=== PATIENT | male | born 1995 | race American Indian/Alaskan Native ===

== ENCOUNTER 2020-11-30 08:50 | Emergency (ER) | payer OTHER ==
--- NOTE | 2020-11-30 10:43 | Emergency Department Report ---
Blank Doc - Documentation Documentation: 25-year-old male that presents with RLQ pain, nausea and chest pains. Denies any vomiting and SOB. Exam: tenderness to RLQ. 1- This is a initial triage assessment/medical screening only. Full assessment and work-up will be completed once the patient is in proper hospital gown, ED bed and in a private room setting. This initial assessment/diagnostic orders/clinical plan/ treatment(s) is/are subject to change based on pt's health status, clinical progression and re-assessment by fellow clinical providers in the ED. Further treatment and workup at subsequent clinical providers discretion. Patient/guardians urged not to elope from ED as their condition may be serious if not clinically assessed and managed. 2-labs 3-EKG 4-xrays
--- NOTE | 2020-11-30 11:22 | XRay Report ---
ABDOMINAL SERIES WITH CHEST X-RAY ONE VIEW HISTORY: Chest and abdominal pain for 3 days COMPARISON: None. IMPRESSION: Normal heart and mediastinal structures. The lungs are clear. Supine and upright views of the abdomen demonstrate a normal bowel gas pattern. No evidence for mass, constipation or pathologic calcifications. No bowel obstruction. Mild scoliosis is noted in the thoracolumbar spine. Signer Name: Rodrigo Fernandez Jr, MD Signed: 11/30/2020 11:17 AM Workstation Name: [id number]
[2020-11-30 11:51] LABS: Basophils # (Auto) 0.1 K/mm3 (0.0-0.1); Basophils % (Auto) 0.8 % (0.0-1.8); Eosinophils # (Auto) 0.1 K/mm3 (0.0-0.4); Hematocrit 43.2 % (35.5-45.6); Hemoglobin 14.4 gm/dl (11.8-15.2); Lymphocytes # (Auto) 1.8 K/mm3 (1.2-5.4); Lymphocytes % (Auto) 27.2 % (13.4-35.0); Mean Corpuscular HGB Conc 33 % (32-34); Mean Corpuscular Volume 89 fl (84-94); Monocytes # (Auto) 0.5 K/mm3 (0.0-0.8); Monocytes % (Auto) 8.2 % (0.0-7.3); Platelet Count 312 K/mm3 (140-440); Red Blood Count 4.83 M/mm3 (3.65-5.03); Red Cell Distribution Width 14.5 % (13.2-15.2)
[2020-11-30 12:03] VITALS: BP 135/100
[2020-11-30 12:16] LABS: Alanine Aminotransferase 22 units/L (7-56); Albumin 4.5 g/dL (3.9-5); Blood Urea Nitrogen 7 mg/dL (9-20); Calcium 9.9 mg/dL (8.4-10.2); Hemolysis Index 7
[2020-11-30 12:17] LABS: BUN/Creatinine Ratio 10
[2020-11-30 12:22] LABS: INR 0.91 (0.87-1.13)
[2020-11-30 12:23] LABS: Partial Thromboplastin Time 25.6 Sec. (24.2-36.6)
[2020-11-30 19:19] LABS: Bilirubin,Urine NEG (Negative); Blood,Urine NEG (Negative); Color,Urine Yellow (Yellow); Mucus,Urine FEW /HPF; Protein,Urine <15 mg/dL mg/dL (Negative); Urobilinogen,Urine < 2.0 mg/dL (<2.0)
--- NOTE | 2020-12-03 09:04 | Electrocardiograph Report ---
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
--- NOTE | 2020-12-03 09:04 | Electrocardiograph Report ---
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
== END 2020-11-30 18:00 | disposition left against medical advice (07) ==
LOC: ED 08:50
DX: R10.9 Unspecified abdominal pain (principal); Z53.21 Procedure and treatment not carried out due to patient leaving prior to being seen by health care provider
CPT/HCPCS: 36415; 74022; 80053; 81001; 83690; 84484; 85025; 85610; 85730; 93005

== ENCOUNTER 2021-06-13 13:51 | Emergency (ER) | payer OTHER ==
[2021-06-13] MEDS ORDERED: IBUPROFEN 800 MG TAB PO ONE (16:02)
[2021-06-13] MEDS ORDERED: ONDANSETRON 4 MG ODT TAB PO ONE (16:02)
--- NOTE | 2021-06-13 16:19 | Emergency Department Report ---
ED Chest Pain HPI - General Chief Complaint: Weakness Stated Complaint: CHEST PAIN Time Seen by Provider: 06/13/21 15:58 Source: patient Mode of arrival: Ambulatory Limitations: No Limitations - History of Present Illness Initial Comments: Chief complaint: "I am withdrawing from meth. I want you to flush me." HPI: This is 26 yo male with hx of methamphetamine abuse who presents headache and chest pain. Last used methamphetamine 3 days ago. He has mild global headache. Mild nondescript chest pain. No radiation. No dyspnea. MD Complaint: chest pain -: Gradual, days(s) ( day) Onset: during rest Pain Location: substernal Severity: mild Quality: aching Consistency: constant Improves With: nothing Worsens With: nothing Context: other (meth use) Treatments Prior to Arrival: none - Related Data Home Medications Medication Instructions Recorded Confirmed Last Taken No Known Home Medications [No 06/13/21 06/13/21 Unknown Reported Home Medications] Allergies Allergy/AdvReac Type Severity Reaction Status Date / Time No Known Allergies Allergy Verified 06/13/21 15:42 Heart Score - HEART Score History: Slightly suspicious EKG: Non-specific Age: < 45 Risk factors: 1-2 risk factors Troponin: < normal limit HEART Score: 2 - EKG Read Time Time EKG Completed: 15:54 EKG Read Time: 15:57 - Critical Actions Critical Actions: 0-3 pts:0.9-1.7%risk of adverse cardiac event.Candidate for discharge ED Review of Systems ROS: Stated complaint: CHEST PAIN Other details as noted in HPI Comment: All other systems reviewed and negative Constitutional: denies: chills, fever, malaise Respiratory: denies: cough, shortness of breath Cardiovascular: chest pain Gastrointestinal: denies: abdominal pain, nausea, vomiting Neurological: headache ED Past Medical Hx - Past Medical History Previous Medical History?: No - Surgical History Past Surgical History?: No - Social History Smoking Status: Current Every Day Smoker Substance Use Type: Alcohol, Methamphetamines - Medications Home Medications: Home Medications Medication Instructions Recorded Confirmed Last Taken Type No Known Home Medications [No 06/13/21 06/13/21 Unknown History Reported Home Medications] ED Physical Exam - General Limitations: No Limitations General appearance: alert, in no apparent distress - Head Head exam: Present: atraumatic, normocephalic - Eye Eye exam: Present: normal appearance - ENT ENT exam: Present: mucous membranes moist - Neck Neck exam: Present: normal inspection, full ROM - Respiratory Respiratory exam: Present: normal lung sounds bilaterally. Absent: respiratory distress, wheezes, rales, rhonchi - Cardiovascular Cardiovascular Exam: Present: regular rate, normal rhythm, normal heart sounds. Absent: systolic murmur, diastolic murmur, rubs, gallop - GI/Abdominal GI/Abdominal exam: Present: soft, normal bowel sounds. Absent: distended, tenderness, guarding, rebound - Rectal Rectal exam: Present: deferred - Extremities Exam Extremities exam: Present: normal inspection - Back Exam Back exam: Present: normal inspection - Neurological Exam Neurological exam: Present: alert, oriented X3 - Psychiatric Psychiatric exam: Present: normal affect, normal mood - Skin Skin exam: Present: warm, dry, intact, normal color. Absent: rash ED Course Vital Signs 06/13/21 06/13/21 06/13/21 14:59 15:36 17:01 Temperature 98.3 F Pulse Rate 90 Respiratory 16 15 Rate Blood Pressure 135/87 Blood Pressure 139/74 [Left] O2 Sat by Pulse 100 Oximetry ED Medical Decision Making - EKG Data -: EKG Interpreted by Ia EKG shows normal: sinus rhythm, axis Rate: normal - EKG Data 06/13/21 16:18 EKG obtained 1554 EKG interpreted by ut Normal sinus rhythm rate 80 bpm normal axis normal intervals ST morphology in V3 somewhat different than on previous EKG without reciprocal changes no other - Medical Decision Making 1. Methamphetamine dependence normal exam today. 2. Chest pain likely due to GERD, troponin negative. Discharged home. Critical care attestation.: If time is entered above; I have spent that time in minutes in the direct care of this critically ill patient, excluding procedure time. ED Disposition Clinical Impression: Methamphetamine abuse Disposition: HOME / SELF CARE / HOMELESS Is pt being admited?: No Does the pt Need Aspirin: No Condition: Stable Instructions: Methamphetamines Use Disorder Referrals: [facility] [Outside] - 3-5 Days
[2021-06-13 18:08] VITALS: BP 126/73
--- NOTE | 2021-06-14 10:17 | Electrocardiograph Report ---
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
== END 2021-06-13 18:26 | disposition home or self-care (01) ==
LOC: ED 13:51
DX: F19.10 Other psychoactive substance abuse, uncomplicated (principal); F17.200 Nicotine dependence, unspecified, uncomplicated; F10.20 Alcohol dependence, uncomplicated
CPT/HCPCS: 36415; 84484; 93005; 93010; 99283; J3490; Q0162

== ENCOUNTER 2021-08-08 01:28 | Emergency (ER) | payer SELFPAY ==
[2021-08-08 02:11] VITALS: BP 136/85
--- NOTE | 2021-08-08 02:46 | XRay Report ---
LEFT FOOT 3 VIEWS. INDICATION / CLINICAL INFORMATION: left foot pain;INJURY COMPARISON: None available. FINDINGS: BONES / JOINT(S): No acute fracture or subluxation. No significant arthritis. SOFT TISSUES: No significant abnormality. ADDITIONAL FINDINGS: None. IMPRESSION: 1. No acute findings involve the left foot. Signer Name: Ronan Rodney II, MD Signed: 08/08/2021 2:42 AM Workstation Name: [id number]
== END 2021-08-08 09:03 | disposition left against medical advice (07) ==
LOC: ED 01:28
DX: S99.922A Unspecified injury of left foot, initial encounter (principal); Z53.21 Procedure and treatment not carried out due to patient leaving prior to being seen by health care provider; X58.XXXA Exposure to other specified factors, initial encounter; Y93.89 Activity, other specified; Y92.89 Other specified places as the place of occurrence of the external cause; Y99.8 Other external cause status